=== PATIENT | female | born 1970 | race Caucasian/White ===

== ENCOUNTER 2018-02-10 16:56 | Emergency (ER) | payer OTHER, MEDICAID, SELFPAY ==
[2018-02-10 17:00] VITALS: PULSE 75; RESP 16; TEMP 36.6; O2SAT 100
--- NOTE | 2018-02-10 17:06 | ED.GENADULT ---
HPI - General Adult General Chief complaint: Hypertension Stated complaint: states blood pressure is very high Time Seen by Provider: 02/10/18 17:02 Source: patient Mode of arrival: ambulatory Limitations: no limitations History of Present Illness HPI narrative: 47-year-old female with a known history of hypertension over the past 30 years is here for medication refill. She states that during the summertime when she exerts herself her blood pressure is elevated. She initially stated that she did not know what her blood pressure runs at home which she can ?feel when it is elevated ?after further discussion about taking her home blood pressure she states that her home blood pressure is normally 180s in the daytime in 150s at nighttime. She states she was seen in emergency department an or again recently and was started on a new blood pressure medication. She does have a follow-up appointment with a primary doctor next week. She denies chest pain, vision changes, headache, abdominal pain or shortness of breath Related Data Home Medications Medication Instructions Recorded Confirmed losartan-hydrochlorothiazide 1 tab PO DAILY 02/10/18 02/10/18 Previous Rx's Medication Instructions Recorded atenolol 50 mg PO QDAY #30 tab 06/29/17 atenolol 50 mg PO DAILY #30 tab 02/10/18 losartan-hydrochlorothiazide 1 tab PO DAILY #30 tab 02/10/18 Allergies Allergy/AdvReac Type Severity Reaction Status Date / Time Penicillins [PENICILLINS] Allergy Unknown Unverified 11/13/17 12:08 GENERIC: Tape, - Tape, Allergy Unknown RASH Uncoded 11/13/17 12:08 Adhesive Review of Systems Constitutional Denies fatigue, Denies fever(s), Denies headache(s) and Denies weakness Eyes Denies itchy eyes ENT Ears, Nose, Mouth, and Throat: Denies vertigo, Denies dizziness and Denies headache(s) Cardiovascular Denies chest pain, Denies syncope, Denies edema, Denies palpitations and Denies dyspnea Respiratory Denies cough and Denies dyspnea Gastrointestinal Gastrointestinal: Denies constipation, Denies diarrhea, Denies nausea and Denies vomiting Genitourinary Denies dysuria Musculoskeletal Denies myalgias and Denies arthralgias Integumentary/Breasts Denies lesions and Denies rash Neurologic Denies behavioral changes, Denies confusion, Denies vertigo, Denies dizziness, Denies syncope, Denies headache(s) and Denies weakness Psychiatric Denies behavioral changes and Denies confusion Endocrine Denies fatigue and Denies palpitations Hematologic/Lymphatic Denies easy bleeding and Denies easy bruising Allergic/Immunologic Denies urticaria and Denies itchy eyes Exam Initial Vital Signs Initial Vital Signs: Vital Signs Temperature 97.8 F 02/10/18 17:00 Pulse Rate 75 02/10/18 17:00 Respiratory Rate 16 02/10/18 17:00 Pulse Oximetry 100 02/10/18 17:00 Const General: cooperative, healthy appearing, comfortable, well developed, well groomed and No acute distress Orientation: not alert, not awake and not oriented x3 HENMT Head: normal to inspection, normocephalic and atraumatic Resp Effort & Inspection: normal respiratory effort Auscultation: clear to auscultation bilaterally Cardio Rate: regular rate Rhythm: regular rhythm Pulses: radial pulses present GI Inspection: normal to inspection and non-distended Palpation: soft, No firm and No tender Back/Spine/Pelvis Back: No CVA tenderness Skin Lesions: no lesions Rashes: no rashes Neuro General: alert, awake and oriented x3 Cognition: normal cognition Speech: speech normal Extrem General: normal to inspection Course Vital Signs - 8 hr 02/10/18 17:00 02/10/18 17:09 Temperature 97.8 F Pulse Rate 75 Respiratory Rate 16 Blood Pressure [Right Arm] 232/108 H Pulse Oximetry 100 Medical Decision Making MDM Narrative Medical decision making narrative: Patient without history of physical exam consistent with ACS, pulmonary edema, heart failure. Patient states she does not have any problems with her kidneys. Does not have any neurologic symptoms suggestive of CVA. We had discussion with the patient regarding her blood pressure and the importance of taking her blood pressure at home so that her appointment with her primary doctor next week would be more helpful. We did discuss the importance of keeping blood pressure under control. Will hold on further workup for now. Will refill her medication. She was instructed to follow up with her primary doctor next week as scheduled. She expressed understanding. She was given return precautions. Discharge Plan Departure Patient Disposition: Home, Self-Care Clinical Impression: Hypertension Instructions: DI for High Blood Pressure Activity Restrictions/Additional Instructions: Recommend that you purchase a blood pressure cuff intake your blood pressure at home once a day. Take your medications as directed. Keep your appointment with your primary doctor you have scheduled for later this week. Return to the emergency department for any chest pain, shortness of breath or any other new or worsening symptoms Prescriptions: New losartan-hydrochlorothiazide 100-25 mg tablet 1 tab PO DAILY Qty: 30 RF: 0 atenolol 50 mg tablet 50 mg PO DAILY Qty: 30 RF: 0 No Action atenolol 50 MG tablet 50 mg PO QDAY Qty: 30 RF: 0 losartan-hydrochlorothiazide 50-12.5 mg Tablet 1 tab PO DAILY RF: 0
[2018-02-10 17:09] VITALS: BP 232/108
== END 2018-02-10 17:37 | disposition home or self-care (01) ==
PROVIDERS: Emergency Provider Emergency Medicine; PCP Family Medicine
DX: I10 Essential (primary) hypertension (principal)
CPT/HCPCS: 99282